=== PATIENT | female | born 1935 | race Caucasian/White ===

== ENCOUNTER 2019-08-15 20:55 | Emergency (ER) | payer MEDICARE ==
[~2019-08-15] VITALS: Ht 165.1 cm; Wt 63.9 kg
--- NOTE | 2019-08-15 21:40 | PHYS DOC ---
Past History Past Medical History: A-Fib, COPD, Dementia, Diabetes, High Cholesterol, Hypertension, Kidney Infection Past Medical History Limited secondary to dementia and altered mental status Past Surgical History: No Surgical History Past Surgical History Limited secondary to dementia and altered mental status Smoking: Non-smoker Alcohol Use: None Drug Use: None Social History Limited secondary to dementia and altered mental status Adult General Chief Complaint Chief Complaint: ALTERED MENTAL STATUS HPI HPI 84-year-old female presents via EMS with report of altered mental status which started 08/12/2019. Family member reports patient has been "not acting right" and "speaking differently ". Patient does have history of dementia. Family member reports speaking to patient's home health nurse who felt patient appeared to be at her baseline. No history of known fever. No history of vomiting. No history of known trauma. Family denies history of prior CVA. Reports patient is currently on Xarelto for her atrial fibrillation. History of present illness limited secondary to dementia and altered mental status Review of Systems Review of Systems Constitutional: Denies fever or chills GI: Denies abdominal pain or vomiting Neurologic: Reports altered mental status Review of systems limited secondary to dementia and altered mental status Allergies Allergies Allergies Coded Allergies Type Severity Reaction Last Updated Verified Sulfa (Sulfonamide Antibiotics) Allergy Unknown 08/15/19 Yes Physical Exam Physical Exam Constitutional: Well developed, well nourished, no acute distress, non-toxic appearance HENT: Normocephalic, atraumatic, oropharynx moist Eyes: PERRL, EOMI, conjunctiva normal, no discharge Neck: Normal range of motion, no midline tenderness, supple Cardiovascular: Heart rate normal, irregularly irregular rhythm Lungs & Thorax: Bilateral breath sounds clear to auscultation, no wheezing Abdomen: Soft, no tenderness Skin: Warm, dry, no erythema, no rash Extremities: No tenderness, ROM intact, no edema Neurologic: Alert and oriented to name only, speech with mild dysarthria, no focal deficits noted GCS 14 (eye4,verbal4, motor6) Psychologic: Affect normal, judgment abnormal Current Patient Data Vital Signs Vital Signs Date Time Temp Pulse Resp B/P (MAP) Pulse Ox O2 Delivery O2 Flow Rate FiO2 08/15/19 21:11 98.9 87 168/99 (122) 95 08/15/19 21:03 16 Room Air EKG EKG @2158 Afib at 101bpm, NO ST elevation, baseline artifact, QRS 78ms, QT/QTc 354/460ms Radiology/Procedures Radiology/Procedures PROCEDURE: CT HEAD WO CONTRAST CT scan of the head without contrast 08/15/2019 Clinical History: Altered mental status Technique: Unenhanced, contiguous, 5 mm axial sections were obtained through the head. One or more of the following individualized dose reduction techniques were utilized for this study: 1. Automated exposure control. 2. Adjustment of the mA and/or kV according to patient size. 3. Use of iterative reconstruction technique. Findings: No previous studies are available for comparison. There is generalized parenchymal atrophy. Areas of decreased attenuation are seen within the periventricular and subcortical white matter of both cerebral hemispheres consistent with areas of small vessel ischemic disease. A large area of acute interventricular hemorrhage is seen involving the majority of the left lateral ventricle. Small area of dependent hemorrhage is seen within the right lateral ventricle. Dilatation of both lateral ventricles and the third ventricle is seen consistent with mild hydrocephalus. An acute parenchymal hematoma is seen involving the left frontal temporal parietal lobe. This measures 1 cm in size. There is no significant surrounding edema or associated mass effect. Calcifications are seen within the basal ganglia regions bilaterally. No skull fracture is seen. IMPRESSION: Large acute intraventricular hemorrhage is seen involving the left lateral ventricle. Smaller acute intraventricular hemorrhage is seen involving the right lateral ventricle. There is mild hydrocephalus. A 1 cm acute parenchymal hematoma is seen involving the left temporal frontal parietal lobe. There is no significant surrounding edema or associated mass effect. These findings were discussed with Dr. Montero. Electronically signed by: Froylan Mcdonald MD (08/15/2019 10:11 PM) [id number] PROCEDURE: PORTABLE CHEST 1V Single view chest dated 08/15/2019. COMPARISON: None. CLINICAL INDICATION: Altered mental status. FINDINGS: Single upright portable exam performed. Heart and mediastinal contours within normal limits. Mild tortuosity of the thoracic aorta. There is a calcified right hilar lymph nodes with scattered calcified granuloma. No consolidation or pleural effusion. No pneumothorax. IMPRESSION: 1. No acute radiographic abnormality. 2. Old granulomatous disease. Electronically signed by: Chris Denney MD (08/15/2019 10:05 PM) [id number] Course & Med Decision Making Course & Med Decision Making Pertinent Labs and Imaging studies reviewed. (See chart for details) Elderly patient with past medical history of dementia presents with altered mental status that is been ongoing since Tuesday. NIHSS 2 which is likely partially secondary to patient's baseline dementia. CT imaging obtained with large intraventricular hemorrhage and small parenchymal hemorrhage without edema or mass effect. Hemoglobin stable. Patient also noted to have elevated lactic acid. No significant source of infection appreciated. UA with microscopic hematuria due to straight cath on Xarelto. Doubt infection. Hypomagnesemia addressed. Patient requiring transfer to facility with neurosurgical capability. Discussed with family regarding, who report unable to go to [place] due to [employer] insurance. Family requests [facility]. Utilized [facility] transfer line. Discussed with neurosurgery and Dr. Keenan (transfer line physician) who accept patient to [facility]. Requests to keep SBP around 140. Labetalol given. Also requests reversal of Xarelto. Unfortunately, [facility] not available at [place]. Discussed inability to provide with Dr. Keenan, who will have available for patient upon arrival. Discussed findings and plan with patient and family, who acknowledge understanding and agreement. Dragon Disclaimer Dragon Disclaimer This electronic medical record was generated, in whole or in part, using a voice recognition dictation system. Departure Departure: Impression: Primary Impression: Intraventricular hemorrhage Additional Impressions: Dementia Hypomagnesemia Lactic acidosis Disposition: TRANSFER OTHER ([facility]) Condition: GUARDED Referrals: MARITO CONWAY MD (PCP) NIHSS - ED NIH Stroke Scale: NIH Stroke Scale Response (Comments) Value Level of Consciousness: 0 Alert/Responsive 0 LOC Questions: 1 Answers one correctly (Confused but hx of dementia (unclear if baseline)) 1 LOC Commands: 0 Performs both tasks 0 Visual: 0 No visual loss 0 Facial Palsy: 0 Normal, symmetrical 0 Motor - Left Arm 0 No drift 0 Motor - Right Arm 0 No drift 0 Motor - Left Leg 0 No drift 0 Motor: Right Leg 0 No drift 0 Limb Ataxia: 0 Absent 0 Sensory: 0 No loss 0 Best Language: 0 Normal 0 Dysathria: 1 Mild to moderate 1 Extinction and Inattention: 0 Normal 0 Total 2 Critical Care Time Critical care time was 30 minutes which includes time at bedside, spent in discussion of patient's care with specialists and/or family members, with interpretation of laboratory and/or radiological studies and is exclusive of procedures. Problem Qualifiers Additional Impressions: Dementia Dementia type: unspecified type Dementia behavioral disturbance: without behavioral disturbance Qualified Codes: F03.90 - Unspecified dementia without behavioral disturbance CHRIS MONTERO DO Aug 15, 2019 21:40
[2019-08-15 21:58] LABS: BASO # 0.1 x10^3/uL (0.0-0.2); BASO % 1 % (0-3); EOS % 0 % (0-3); HEMATOCRIT 45.4 % (36.0-47.0); HEMOGLOBIN 15.1 g/dL (12.0-15.5); LYMPH # 1.4 x10^3/uL (1.0-4.8); LYMPH % 15 % (24-48); MEAN CORPUSCULAR HEMOGLOBIN 30 pg (25-35); MEAN CORPUSCULAR HGB CONC 33 g/dL (31-37); MEAN CORPUSCULAR VOLUME 91 fL (79-100); MONO # 0.7 x10^3/uL (0.0-1.1); MONO % 8 % (0-9); NEUT % 77 % (31-73); PLATELET COUNT 233 x10^3/uL (140-400); RED BLOOD COUNT 4.99 x10^6/uL (3.50-5.40); RED CELL DISTRIBUTION WIDTH 13.8 % (11.5-14.5); WHITE BLOOD COUNT 9.1 x10^3/uL (4.0-11.0)
--- NOTE | 2019-08-15 22:08 | EKG ---
[address] [address] Test Date: 2019-08-15 Test Time: 21:58:08 Pat Name: DEBRA URBANO Department: Room: Gender: F [employer] Long: : 1935 Requested By: CHRIS MONTERO Order Number: [id number] Reading MD: Measurements Intervals [place] Rate: 101 P: 0 [place]: 136 QRS: -38 QRSD: 78 T: 16 QT: 354 QTc: 460 Interpretive Statements SINUS TACHYCARDIA ABNORMAL LEFT AXIS DEVIATION QRS(T) CONTOUR ABNORMALITY CONSISTENT WITH INFERIOR INFARCT PROBABLY OLD ABNORMAL ECG RI6.01 No previous ECG available for comparison
--- NOTE | 2019-08-15 22:08 | RAD ---
Single view chest dated 08/15/2019. COMPARISON: None. CLINICAL INDICATION: Altered mental status. FINDINGS: Single upright portable exam performed. Heart and mediastinal contours within normal limits. Mild tortuosity of the thoracic aorta. There is a calcified right hilar lymph nodes with scattered calcified granuloma. No consolidation or pleural effusion. No pneumothorax. IMPRESSION: 1. No acute radiographic abnormality. 2. Old granulomatous disease. Electronically signed by: Mario Denney MD (08/15/2019 10:05 PM) [id number]
--- NOTE | 2019-08-15 22:14 | RAD ---
CT scan of the head without contrast 08/15/2019 Clinical History: Altered mental status Technique: Unenhanced, contiguous, 5 mm axial sections were obtained through the head. One or more of the following individualized dose reduction techniques were utilized for this study: 1. Automated exposure control. 2. Adjustment of the mA and/or kV according to patient size. 3. Use of iterative reconstruction technique. Findings: No previous studies are available for comparison. There is generalized parenchymal atrophy. Areas of decreased attenuation are seen within the periventricular and subcortical white matter of both cerebral hemispheres consistent with areas of small vessel ischemic disease. A large area of acute interventricular hemorrhage is seen involving the majority of the left lateral ventricle. Small area of dependent hemorrhage is seen within the right lateral ventricle. Dilatation of both lateral ventricles and the third ventricle is seen consistent with mild hydrocephalus. An acute parenchymal hematoma is seen involving the left frontal temporal parietal lobe. This measures 1 cm in size. There is no significant surrounding edema or associated mass effect. Calcifications are seen within the basal ganglia regions bilaterally. No skull fracture is seen. IMPRESSION: Large acute intraventricular hemorrhage is seen involving the left lateral ventricle. Smaller acute intraventricular hemorrhage is seen involving the right lateral ventricle. There is mild hydrocephalus. A 1 cm acute parenchymal hematoma is seen involving the left temporal frontal parietal lobe. There is no significant surrounding edema or associated mass effect. These findings were discussed with Dr. Patel. Electronically signed by: Froylan Mcdonald MD (08/15/2019 10:11 PM) [id number]
[2019-08-15 22:18] LABS: BACTERIA,URINE MANY /HPF (0-FEW); BILIRUBIN,URINE NEG (NEG); CLARITY,URINE CLOUDY; COLOR,URINE YELLOW; GLUCOSE,URINE NEG (NEG); NITRITE,URINE NEG (NEG); RBC,URINE TNTC /HPF (0-2)
[2019-08-15 22:23] LABS: ALBUMIN 3.5 g/dL (3.4-5.0); ALBUMIN/GLOBULIN RATIO 0.9 (1.0-1.7); ALK PHOS 79 U/L (46-116); ALT (SGPT) 14 U/L (14-59); ANION GAP 13 (6-14); AST (SGOT) 23 U/L (15-37); BLOOD UREA NITROGEN 15 mg/dL (7-20); BUN/CREATININE RATIO 14 (6-20); CALCIUM 9.1 mg/dL (8.5-10.1); CARBON DIOXIDE 24 mmol/L (21-32); CHLORIDE 100 mmol/L (98-107); CREATININE 1.1 mg/dL (0.6-1.0); GFR 47.3; GLUCOSE 121 mg/dL (70-99); MAGNESIUM 1.5 mg/dL (1.8-2.4); POTASSIUM 3.9 mmol/L (3.5-5.1); SODIUM 137 mmol/L (136-145); TOTAL PROTEIN 7.4 g/dL (6.4-8.2)
[2019-08-15 22:55] VITALS: BP 153/102
[2019-08-15] MEDS: LABETALOL 20 MG/4 ML DISP.SYRIN. IVP ONE (22:55)
[2019-08-15] MEDS: MAGNESIUM SULFATE 2GM 50 ML IV ONE (23:42)
== END 2019-08-15 23:50 | disposition short-term general hospital (02) ==
LOC: ER 20:55
DX: I61.5 Nontraumatic intracerebral hemorrhage, intraventricular (principal); F03.90 Unspecified dementia, unspecified severity, without behavioral disturbance, psychotic disturbance, mood disturbance, and anxiety; E83.42 Hypomagnesemia; E87.2 Acidosis; I48.91 Unspecified atrial fibrillation; J44.9 Chronic obstructive pulmonary disease, unspecified; E11.9 Type 2 diabetes mellitus without complications; E78.00 Pure hypercholesterolemia, unspecified; I10 Essential (primary) hypertension; Z88.2 Allergy status to sulfonamides
CPT/HCPCS: 36415; 70450; 71045; 80053; 81001; 82140; 82553; 83605; 83735; 84484; 85025; 85610; 85730; 87086; 93005; 96374; 96375; 99291; J3475; J3490